=== PATIENT | female | born 1980 | race Caucasian/White ===

== ENCOUNTER 2018-09-12 18:41 | Emergency (ER) | payer BC ==
[~2018-09-12] VITALS: Ht 172.7 cm; Wt 68.0 kg
[2018-09-12 18:43] VITALS: BP_SYST 159
[2018-09-12] MEDS ORDERED: NACL 0.9% 1,000 ML IV ONE (18:50)
[2018-09-12] MEDS ORDERED: CLOPIDOGREL BISULFATE 75 MG TABLET PO ONE (19:00)
[2018-09-12] MEDS ORDERED: ASPIRIN 81 MG TAB.CHEW PO ONE (19:00)
[2018-09-12] MEDS ORDERED: ONDANSETRON HCL 4 MG/2 ML VIAL IVP ONE (19:00)
[2018-09-12 19:13] LABS: BILIRUBIN,URINE NEGATIVE (NEGATIVE); CLARITY/URINE CLEAR (CLEAR); GLUCOSE,URINE NEGATIVE (NEGATIVE); KETONES,URINE NEGATIVE (NEGATIVE); LEUKOCYTE ESTERASE ,URINE NEGATIVE (NEGATIVE); NITRITE, URINE NEGATIVE (NEGATIVE); PROTEIN URINE NEGATIVE (NEGATIVE); UROBILINOGEN,URINE 0.2 (0.2-1.0)
[2018-09-12 19:23] LABS: BLOOD, URINE TRACE (NEGATIVE); COLOR,URINE STRAW (YELLOW)
[2018-09-12 19:24] LABS: BACTERIA,URINE FEW /HPF (None Seen); MUCUS,URINE None Seen /LPF (None Seen); RBC,URINE NONE SEEN /HPF (0-3); WBC,URINE NONE SEEN /HPF (0-3)
[2018-09-12 19:27] LABS: BASOPHILS % (AUTO) 0.5 % (0.0-2.0); EOSINOPHILS # (AUTO) 0.4 K/uL (0.0-0.4); EOSINOPHILS % (AUTO) 4.8 % (0.0-4.0); HEMOGLOBIN 13.6 g/dL (12.0-16.0); LYMPHOCYTES # (AUTO) 2.6 K/uL (1.0-5.5); LYMPHOCYTES % (AUTO) 30.9 % (20.5-51.5); MEAN CORPUSCULAR HEMOGLOBIN 32 pg (27-31); MEAN CORPUSCULAR HGB CONC 34 % (32-36); MEAN CORPUSCULAR VOLUME 94 fL (79.0-98.0); MONOCYTES # (AUTO) 0.7 K/uL (0.0-1.0); MONOCYTES % (AUTO) 8.5 % (1.7-9.3); NEUTROPHILS # (AUTO) 4.6 K/uL (1.8-7.7); NEUTROPHILS % (AUTO) 55.3 % (40.0-70.0); PLATELET COUNT (AUTO) 335 K/uL (130-430); RED BLOOD CELL COUNT(AUTO) 4.24 MIL/uL (4.2-6.2); WHITE BLOOD COUNT (AUTO) 8.4 K/uL (4.8-10.8)
[2018-09-12 19:32] LABS: CALCIUM 8.5 mg/dL (8.4-11.0); CREATININE 0.77 mg/dL (0.55-1.30); POTASSIUM 3.6 mmol/L (3.5-5.1)
[2018-09-12 19:34] LABS: INR 0.9 (0.8-1.2); PROTHROMBIN TIME 9.3 SECS (9.5-12.5)
[2018-09-12 19:36] LABS: BARBITURATE, URINE NEGATIVE (NEG <=200); BENZODIAZEPINE, URINE NEGATIVE (NEG <=150); CANNABINOID, URINE NEGATIVE (NEG <=50); COCAINE, URINE NEGATIVE (NEG <=150); METHAMPHETAMINES SCREEN,URINE NEGATIVE (NEG <=500); OPIATE, URINE NEGATIVE (NEG <=100); PHENCYCLIDINE SCREEN,URINE NEGATIVE (NEG <=25); UR TRICYCLIC ANTIDEPRESSANTS NEGATIVE (NEG <=300); URINE AMPHETAMINE NEGATIVE (NEG <=500); URINE METHADONE NEGATIVE (NEG <=200); URINE OXYCODONE SCREEN NEGATIVE (NEG <=100); URINE PROPOXYPHENE SCREEN NEGATIVE (NEG <=300)
[2018-09-12 19:38] LABS: ALBUMIN 3.6 g/dL (3.4-4.8); TOTAL BILIRUBIN 0.5 mg/dL (0.0-1.0)
[2018-09-12] MEDS ORDERED: LORazepam 2 MG/ML VIAL IVP ONE (19:45)
[2018-09-12] MEDS ORDERED: LORazepam 2 MG/ML VIAL (FOR ER USE) ONE (20:03)
[2018-09-12 21:15] VITALS: BP_SYST 142
== END 2018-09-12 21:15 | disposition home or self-care (01) ==
LOC: SED 18:41
DX: F41.9 Anxiety disorder, unspecified (principal); R00.2 Palpitations; Z88.2 Allergy status to sulfonamides
CPT/HCPCS: 36415; 71045; 80053; 80307; 81000; 81025; 82550; 83605; 83690; 84484; 85025; 85610; 85730; 87040; 93005; 96361; 96374; 96375; 99284; G0482; J2060; J2405; J7030

== ENCOUNTER 2018-12-24 09:18 | Emergency (ER) | payer BC ==
[~2018-12-24] VITALS: Ht 172.7 cm; Wt 72.6 kg
[2018-12-24 09:18] VITALS: BP_SYST 156
--- NOTE | 2018-12-24 09:18 | NUR ---
BROUGHT BACK TO BED #7 AND TRIAGED. REPORT GIVEN TO SUSAN
--- NOTE | 2018-12-24 09:35 | NUR ---
PATIENT CAME IN COMPLAINING OF "WITHDRAWL FROM ALCOHOL." PATIENT STATES HER AUNT 12 DAYS AGO SO HAS BEEN DRINKING ABOUT 3 BOTTLES OF WINE AND VODKA A DAY. PATIENT STATES SHE STOPPED DRINKINING YESTERDAY AND NOW IS NAUSEAS. PATIENT DENIES PAIN. PATIENT SHAKING AND ANXIOUS. PATIENT STATES SHE PASSED OUT TWICE TODAY. PATIENT IS ALERT AND ORIENTED X4. EDUCATED NOT TO GET OUT OF BED FOR RISK FOR FALL. PATIENT VERBALIZED UNDERSTANDING.
--- NOTE | 2018-12-24 10:23 | NUR ---
ER Dr. ARROYO at bedside examining patient.
[2018-12-24] MEDS ORDERED: ONDANSETRON 4 MG ODT TAB PO ONE (10:30)
--- NOTE | 2018-12-24 10:59 | NUR ---
Patient given written and verbal discharge instructions and verbalizes understanding. ER MD discussed with patient the results and treatment provided. Patient in stable condition. ID arm band removed. Rx of ZOFRAN AND LIBRIUM given. Patient educated on pain management and to follow up with PMD. Pain Scale 0/10. Opportunity for questions provided and answered. Medication side effect fact sheet provided.
[2018-12-24 11:00] VITALS: BP_SYST 155
== END 2018-12-24 10:59 | disposition home or self-care (01) ==
LOC: SED 09:18
DX: F10.239 Alcohol dependence with withdrawal, unspecified (principal); R11.2 Nausea with vomiting, unspecified; Y90.9 Presence of alcohol in blood, level not specified; Z88.2 Allergy status to sulfonamides
CPT/HCPCS: 99283; Q0162